=== PATIENT | male | born 1980 | race Caucasian/White ===

== ENCOUNTER 2017-05-06 12:59 | Emergency (ER) | payer OTHER ==
[~2017-05-06] VITALS: Ht 190.5 cm; Wt 93.5 kg
[2017-05-06] MEDS ORDERED: MORPHINE 2 MG/ML 1ML SYRINGE IV PRN (13:45)
[2017-05-06] MEDS ORDERED: ACETAMINOPHEN TAB 650MG DOSE (2X325MG) PO ONE (14:30)
[2017-05-06 14:32] LABS: BASO # 0.1 K/mm3 (0.0-0.2); BASO % 0.6 % (0.0-1.0); EOS # 0.1 K/mm3 (0.0-0.50); EOS % 0.8 % (0.0-3.0); LARGE UNSTAINED CELL # 0.2 K/mm3 (0.0-0.4); LARGE UNSTAINED CELL % 1.6 % (0.0-4.0); LYMPH # 1.5 K/mm3 (1.5-4.5); LYMPH % 14.5 % (24.0-44.0); MEAN CORPUSCULAR HEMOGLOBIN 31.4 pg (27.0-33.0); MEAN CORPUSCULAR HGB CONC 34.8 g/dl (32.0-36.5); MEAN CORPUSCULAR VOLUME 90.3 fl (80.0-96.0); MONO # 0.5 K/mm3 (0.0-0.8); MONO % 5.2 % (0.0-5.0); NEUTROPHILS % 77.3 % (36.0-66.0); PLATELET COUNT, AUTOMATED 223 k/mm3 (150-450); RED CELL DISTRIBUTION WIDTH 11.5 % (11.5-14.5); WHITE BLOOD COUNT 10.4 K/mm3 (4.0-10.0)
[2017-05-06 14:34] LABS: INR 1.05
--- NOTE | 2017-05-06 14:43 | REP ---
Clinical: Trauma . Comparison: None . Findings: The mediastinum and cardiac silhouette are stable and within normal limits for portable technique. The lung figueroa are clear without acute consolidation, effusion, or pneumothorax. Skeletal structures are intact. Impression: Normal portable chest x-ray Signed by Perez Martinez MD 05/06/2017 02:35 P
[2017-05-06 14:52] LABS: METHADONE URINE NEGATIVE (NEGATIVE)
[2017-05-06 14:55] LABS: ALKALINE PHOSPHATASE 67 U/L (45-117); ALT/SGPT 49 U/L (12-78); AMYLASE 44 U/L (25-115); AST/SGOT 64 U/L (15-37); BILIRUBIN,DIRECT 0.1 MG/DL (0.0-0.2); BILIRUBIN,TOTAL 0.4 MG/DL (0.2-1.0); BLOOD UREA NITROGEN 18 MG/DL (7-18); CALCIUM LEVEL 8.9 MG/DL (8.5-10.1); CARBON DIOXIDE LEVEL 28 MEQ/L (21-32); CHLORIDE LEVEL 108 MEQ/L (98-107); CREATININE FOR GFR 1.06 MG/DL (0.70-1.30); GLUCOSE, FASTING 100 MG/DL (70-105); SODIUM LEVEL 141 MEQ/L (136-145); TOTAL PROTEIN 7.2 GM/DL (6.4-8.2)
[2017-05-06 15:15] LABS: ANION GAP 5 MEQ/L (8-16)
[2017-05-06] MEDS ORDERED: SODIUM CHLORIDE 0.9% 1000 ML IV ONE (15:15)
[2017-05-06 15:16] LABS: ALBUMIN 3.8 GM/DL (3.2-5.2); ALBUMIN/GLOBULIN RATIO 1.12 (1.00-1.93)
[2017-05-06] MEDS ORDERED: ISOVUE-370 76% 100ML VIAL (Q9967) As Ordered ONE (15:16)
--- NOTE | 2017-05-06 15:44 | REP ---
Clinical: Trauma. Technique: Axial contrast enhanced images from the lung bases to the pubic symphysis using 100 ml Isovue 370 intravenous contrast material with coronal and sagittal re-formations. Findings: Lung bases are clear. Visualized heart and pericardium normal. No evidence for solid organ injury. Liver, spleen, pancreas, gallbladder, bilateral kidneys and right adrenal gland are normal. Left adrenal gland demonstrates 2 cm low density lesion likely representing adenoma. The enteric system is without obstruction or acute inflammatory process. Pelvis demonstrates normal bladder and age appropriate prostate/seminal vesicles. Sigmoid diverticulosis noted without acute diverticulitis. No ascites. No free air. No adenopathy. Vascular structures are normal and intact. Musculoskeletal structures without evidence for acute fracture or dislocation Impression: 1. No evidence for abdominopelvic trauma. 2. 2 cm low density lesion involving the left adrenal gland likely benign adenoma. No prior exams for comparison. Consider pre and postcontrast CT evaluation if necessary. 3. Diverticulosis without acute diverticulitis. Signed by Perez Martinez MD 05/06/2017 03:36 P
--- NOTE | 2017-05-06 15:46 | REP ---
Clinical: Trauma . Technique: Axial noncontrast images from T11 through S1 with coronal and sagittal re-formations. Findings: Normal alignment and lordosis is maintained. Lumbar vertebral bodies including transverse processes and spinous processes are intact and there is no evidence for acute fracture / compression injury or subluxation. Spinal canal is patent. Posterior elements are intact. Paravertebral soft tissues are normal. Impression: Normal noncontrast lumbosacral spine CT. No evidence for acute pathology or trauma/injury. Signed by Perez Martinez MD 05/06/2017 03:38 P
[2017-05-06] MEDS ORDERED: NS 1,000 ML IV SCH (16:00)
[2017-05-06 16:24] VITALS: BP 134/69
--- NOTE | 2017-05-08 07:16 | ECGEPIP ---
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
== END 2017-05-06 17:46 | disposition home or self-care (01) ==
LOC: M ED 12:59
DX: S20.229A Contusion of unspecified back wall of thorax, initial encounter (principal); S70.12XA Contusion of left thigh, initial encounter; V80.010A Animal-rider injured by fall from or being thrown from horse in noncollision accident, initial encounter; Y92.89 Other specified places as the place of occurrence of the external cause; Y93.89 Activity, other specified; Y99.8 Other external cause status; R00.1 Bradycardia, unspecified
CPT/HCPCS: 71010; 72131; 74177; 80048; 80076; 80307; 81001; 82150; 82550; 82553; 83605; 83690; 85025; 85610; 85730; 86850; 86900; 86901; 93005; 93041; 94760; 99284; G0480; Q9967